=== PATIENT | male | born 1965 | race Caucasian/White ===

== ENCOUNTER 2017-05-19 12:39 | Outpatient (CLI) | payer BC ==
--- NOTE | 2017-05-19 14:36 | MRI ---
CERVICAL SPINE MRI WITHOUT CONTRAST: Date: 05-19-17 Comparison: None. History: Right shoulder pain and left sided leg pain, cervical stenosis. Technique: Multiplanar, multisequence MR imaging of the cervical spine obtained without contrast. FINDINGS: The sagittal STIR imaging demonstrates no focal area of osseous marrow edema. There is a lesion within the lateral aspect of the cervical cord demonstrating increased T2 signal me asuring 1.3 cm in craniocaudal dimension x 4 mm in AP dimension. There is moderate degenerative change at the atlantoaxial interspace. There is no prevertebral soft tissue abnormality. There is no anterolisthesis or retrolisthesis. C2-3: There is bilateral facet and uncal vertebral osteophyte formation. There is no significant cent ral canal or neural foraminal stenosis. C3-4: Mild bilateral facet hypertrophy and uncal vertebral osteophyte formation. Intervertebral disc height and signal intensity is within normal limits with no significant central canal or neural brendan inal stenosis. C4-5: There is disc space narrowing and disc desiccation. No significant central canal stenosis. Bila teral facet and uncal vertebral osteophyte formation noted, right greater than left, with moderate bi lateral neural foraminal stenosis, right greater than left. C5-6: There is disc space narrowing and disc desiccation with disc bulge and a right paracentral disc protrusion. There is facet and uncal vertebral osteophyte formation as well, right greater than left . There is moderate central canal stenosis on the right extending into the lateral aspect of the cent ral canal. There is also severe neural foraminal stenosis on the right. There is moderate neural fora davon stenosis on the left. C6-7: There is disc space narrowing and disc desiccation with disc osteophyte complex effacing the ve ntral thecal sac and causing a mild degree of central canal stenosis. Bilateral facet and uncal verte bral osteophyte formation, left greater than right, with moderate/severe bilateral neural foraminal s tenosis, left greater than right. C7-T1: No significant central canal or neural foraminal stenosis. Bilateral facet hypertrophy. IMPRESSION: 1. Multilevel degenerative change noted within the cervical spine, most prominent at C5-6 (right grea ter than left), and to a lesser degree C6-7. 2. There is a T2 hyperintense lesion within the cervical cord laterally on the right at C2-3. This no nspecific lesion may be on the basis of demyelinating disease. Recommend follow up post contrast imag ing of the cervical spine as well as a brain MRI with and without contrast using a multiple sclerosis protocol. Code T POS: SAMI
== END 2017-05-19 12:40 | disposition home or self-care (01) ==
LOC: TBSIIMAG 12:39
PROVIDERS: ATTEND Neurological Surgery
DX: M48.02 Spinal stenosis, cervical region (principal); M47.812 Spondylosis without myelopathy or radiculopathy, cervical region; G95.9 Disease of spinal cord, unspecified
CPT/HCPCS: 72141

== ENCOUNTER 2017-07-24 10:05 | Outpatient (CLI) | payer BC | END 2017-07-24 10:06 | disposition home or self-care (01) | LOC: BICMRI 10:05 | PROVIDERS: ATTEND Neurological Surgery | DX: M47.16 Other spondylosis with myelopathy, lumbar region (principal); M99.83 Other biomechanical lesions of lumbar region | CPT/HCPCS: 72148 ==

== ENCOUNTER 2018-04-22 10:18 | Day surgery (SDC) | payer BC ==
[2018-04-22] MEDS ORDERED: Midazolam HCl 2 mg/2 ml Vial ONE (10:58)
[2018-04-22] MEDS ORDERED: Fentanyl 100 MCG/2 ML VIAL ONE (10:58)
[2018-04-22] MEDS ORDERED: Phenylephrine 2.5% Ophth Soln 5 ML BOT ONE (11:05)
[2018-04-22] MEDS ORDERED: Cyclopentolate 1% Opth Drop 2 ML BOT ONE (11:05)
[2018-04-22] MEDS ORDERED: Lidocaine 1% PF 5 ML VIAL ONE (13:29)
[2018-04-22] MEDS ORDERED: Lidocaine 4% PF 5 ML AMP ONE (13:29)
[2018-04-22] MEDS ORDERED: Bupivacaine 0.75% 10 ML AMP ONE (13:29)
[2018-04-22] MEDS ORDERED: PROPOFOL 200 MG/20 ML VIAL ONE (13:29)
[2018-04-22] MEDS ORDERED: Triamcinolone 40 MG/ML VIAL ONE (13:29)
[2018-04-22] MEDS ORDERED: CEFAZOLIN 1 GM VIAL ONE (13:29)
[2018-04-22] MEDS ORDERED: Maxitrol 0.1% Opth Oint 3.5 GM TUBE ONE (14:18)
--- NOTE | 2018-04-22 17:44 | OP ---
DATE OF PROCEDURE: 04/22/2018 PREOPERATIVE DIAGNOSIS: Glaucoma, right eye. POSTOPERATIVE DIAGNOSIS: Glaucoma, right eye. PROCEDURE PERFORMED: Tube shunts, scleral patch graft; right eye. ANESTHESIA: Local with monitored anesthesia care. DESCRIPTION OF PROCEDURE: The patient was identified in the preoperative holding area. Appropriate informed consent for the planned surgical procedure on the right eye had been obtained. The patient was transported to the operative suite, where appropriate cardiopulmonary monitoring was established. Local anesthesia was obtained using retrobulbar modified Van Lint lid block using 50:50 mixture of 4% lidocaine and 0.75% bupivacaine. The patient was prepped and draped in the usual sterile manner for ophthalmic surgery on the right eye. Lid speculum was placed on the right eye. A 25-gauge trocar was placed through the conjunctiva and sclera superotemporally, inferotemporally, and superonasally. Infusion line was placed inferotemporally. Light pipe vitreous cutter was inserted into the eye. Core vitrectomy was performed. Ahmed FP7 tube shunt was placed superotemporally under conjunctival peritomy, fixated and placed with 2 Mersilene sutures. Superotemporal incision was enlarged and the tube was trimmed until it was inserted into the eye. Tutoplast graft was fixated over the tube using 7-0 Vicryl sutures. Conjunctiva was closed with 6-0 plain gut sutures. Retrobulbar Kenalog and subconjunctival Ancef were placed. Atropine antibiotic ointment was placed. The eye was patched and shielded. The patient was taken to the postoperative recovery unit in good condition, having suffered no immediate perioperative complications. The patient was instructed to keep patch and shield on, avoid lifting or bending. Followup appointment with Dr. Christopher. Job ID: [id number]
== END 2018-04-22 15:04 | disposition home or self-care (01) ==
LOC: SDC 10:18
PROVIDERS: ATTEND Ophthalmology Retina Specialist
PROC: 08123J4 Bypass Right Anterior Chamber to Sclera with Synthetic Substitute, Percutaneous Approach (ICD-10-PCS; principal; 2018-04-22)
DX: H40.9 Unspecified glaucoma (principal); Z98.41 Cataract extraction status, right eye; Z98.42 Cataract extraction status, left eye; Z96.1 Presence of intraocular lens; Z94.7 Corneal transplant status; Z79.899 Other long term (current) drug therapy; Z88.2 Allergy status to sulfonamides
CPT/HCPCS: J0690; J2001; J2250; J2704; J3010; J3301; J3490

== ENCOUNTER 2021-04-23 13:28 | Outpatient (CLI) | payer MEDICARE, BC | END 2021-04-23 13:29 | disposition home or self-care (01) | LOC: SCSMRI 13:28 | PROVIDERS: ATTEND Internal Medicine Cardiovascular Disease | DX: M54.14 Radiculopathy, thoracic region (principal); G35 Multiple sclerosis; R93.7 Abnormal findings on diagnostic imaging of other parts of musculoskeletal system | CPT/HCPCS: 70210; 72157; 82565 ==

== ENCOUNTER 2021-04-29 16:49 | Outpatient (CLI) | payer BC, MEDICARE ==
[2021-04-29 21:01] LABS: SARS-CoV-2 NAA Rapid Test Not Detected (NotDetected)
== END 2021-04-29 16:50 | disposition home or self-care (01) ==
LOC: LABBT 16:49
PROVIDERS: ATTEND Ophthalmology Retina Specialist
DX: Z01.812 Encounter for preprocedural laboratory examination (principal); Z20.822 Contact with and (suspected) exposure to COVID-19
CPT/HCPCS: U0002

== ENCOUNTER 2021-04-30 10:07 | Day surgery (SDC) | payer BC, MEDICARE ==
[2021-04-29 16:06] VITALS: BMI 29.7
[~2021-04-30 10:07] MED LIST: EPINEPHrine 0.3 MG in Ophthalmic Irrigation Solution 500 ML IRR SCH
[2021-04-30] MEDS ORDERED: Cyclopentolate 1% Opth Drop 2 ML BOT ONE (10:23)
[2021-04-30] MEDS ORDERED: Phenylephrine 2.5% Ophth Soln 5 ML BOT ONE (10:23)
[2021-04-30] MEDS ORDERED: Fentanyl 100 MCG/2 ML VIAL ONE ×2 (10:53→11:39)
[2021-04-30] MEDS ORDERED: Cyclopentolate 1% Opth Drop 2 ML BOT FS SCH (11:00)
[2021-04-30] MEDS ORDERED: Phenylephrine 2.5% Ophth Soln 5 ML BOT FS SCH (11:00)
[2021-04-30] MEDS ORDERED: Maxitrol 0.1% Opth Oint 3.5 GM TUBE ONE (11:16)
[2021-04-30] MEDS ORDERED: PROPOFOL 200 MG/20 ML VIAL ONE (11:16)
[2021-04-30] MEDS ORDERED: CEFAZOLIN 1 GM VIAL ONE (11:16)
[2021-04-30] MEDS ORDERED: Lidocaine 1% PF 5 ML VIAL ONE ×2 (11:16)
[2021-04-30] MEDS ORDERED: Bupivacaine PF 0.75% SDV 10 ML ONE (11:16)
[2021-04-30] MEDS ORDERED: Triamcinolone 40 MG/ML VIAL ONE (11:16)
[2021-04-30] MEDS ORDERED: Lidocaine 4% PF 5 ML AMP ONE (11:16)
== END 2021-04-30 13:15 | disposition home or self-care (01) ==
LOC: SDC 10:07
PROVIDERS: ATTEND Ophthalmology Retina Specialist
PROC: 08T53ZZ Resection of Left Vitreous, Percutaneous Approach (ICD-10-PCS; principal; 2021-04-30)
DX: H33.022 Retinal detachment with multiple breaks, left eye (principal); I10 Essential (primary) hypertension; G35 Multiple sclerosis; Z79.02 Long term (current) use of antithrombotics/antiplatelets; Z79.82 Long term (current) use of aspirin; Z79.899 Other long term (current) drug therapy; Z88.2 Allergy status to sulfonamides; Z88.5 Allergy status to narcotic agent
CPT/HCPCS: C1814; J0171; J0690; J2704; J3010; J3301; J3490

== ENCOUNTER 2021-08-29 11:58 | Outpatient (CLI) | payer BC, MEDICARE ==
[2021-08-29 20:49] LABS: SARS-CoV-2 PCR by NAA Not Detected (NotDetected)
== END 2021-08-29 11:59 | disposition home or self-care (01) ==
LOC: LABBT 11:58
PROVIDERS: ATTEND Ophthalmology Retina Specialist
DX: H35.372 Puckering of macula, left eye (principal); H54.7 Unspecified visual loss; Z20.822 Contact with and (suspected) exposure to COVID-19
CPT/HCPCS: U0003; U0005

== ENCOUNTER 2021-09-03 09:06 | Day surgery (SDC) | payer BC, MEDICARE ==
[2021-08-29 14:50] VITALS: BMI 31.3
[~2021-09-03 09:06] MED LIST changes: +Acetaminophen 500 MG TAB PO PRN; +Cyclopentolate 1% Opth Drop 2 ML BOT L EYE SCH; +Midazolam HCl 2 mg/2 ml Vial ONE; +Phenylephrine 2.5% Ophth Soln 5 ML BOT L EYE SCH
[2021-09-03] MEDS ORDERED: Phenylephrine 2.5% Ophth Soln 5 ML BOT ONE (09:47)
[2021-09-03] MEDS ORDERED: Cyclopentolate 1% Opth Drop 2 ML BOT ONE (09:47)
[2021-09-03] MEDS ORDERED: Triamcinolone 40 MG/ML VIAL ONE (10:51)
[2021-09-03] MEDS ORDERED: PROPOFOL 200 MG/20 ML VIAL ONE (10:51)
[2021-09-03] MEDS ORDERED: Metoprolol Tartrate 5 MG/5 ML VIAL ONE (10:51)
[2021-09-03] MEDS ORDERED: Lidocaine 1% PF 5 ML VIAL ONE (10:51)
[2021-09-03] MEDS ORDERED: Bupivacaine 0.75% 10 ML VIAL ONE (10:51)
[2021-09-03] MEDS ORDERED: Lidocaine 4% PF 5 ML AMP ONE (10:51)
[2021-09-03] MEDS ORDERED: CEFAZOLIN 1 GM VIAL ONE (10:51)
[2021-09-03] MEDS ORDERED: Maxitrol 0.1% Opth Oint 3.5 GM TUBE ONE (10:51)
[2021-09-03] MEDS ORDERED: Indocyanine Green 25 MG/10 ML VIAL ONE (10:51)
== END 2021-09-03 12:37 | disposition home or self-care (01) ==
LOC: SDC 09:06
PROVIDERS: ATTEND Ophthalmology Retina Specialist
PROC: 08NF3ZZ Release Left Retina, Percutaneous Approach (ICD-10-PCS; principal; 2021-09-03)
PROC: 08T53ZZ Resection of Left Vitreous, Percutaneous Approach (ICD-10-PCS; principal; 2021-09-03)
DX: H35.372 Puckering of macula, left eye (principal); H33.42 Traction detachment of retina, left eye; I10 Essential (primary) hypertension; G35 Multiple sclerosis; Z79.02 Long term (current) use of antithrombotics/antiplatelets; Z79.82 Long term (current) use of aspirin; Z79.899 Other long term (current) drug therapy; Z88.2 Allergy status to sulfonamides; Z88.5 Allergy status to narcotic agent
CPT/HCPCS: J0171; J0690; J2250; J2704; J3301; J3490

== ENCOUNTER 2022-05-14 10:14 | Outpatient (CLI) | payer BC, MEDICARE | END 2022-05-14 10:15 | disposition home or self-care (01) | LOC: SCSMRI 10:14 | PROVIDERS: ATTEND Orthopaedic Surgery | DX: M75.122 Complete rotator cuff tear or rupture of left shoulder, not specified as traumatic (principal); M19.012 Primary osteoarthritis, left shoulder; M25.412 Effusion, left shoulder; M67.814 Other specified disorders of tendon, left shoulder; S43.085A Other dislocation of left shoulder joint, initial encounter ==

== ENCOUNTER 2023-04-21 09:41 | Outpatient (CLI) | payer BC, MEDICARE | END 2023-04-21 09:42 | disposition home or self-care (01) | LOC: SCSRAD 09:41 | PROVIDERS: ATTEND Family Medicine | DX: M25.531 Pain in right wrist (principal) ==